=== PATIENT | male | born 2000 | race Caucasian/White ===

== ENCOUNTER 2020-09-09 21:17 | Emergency (ER) | payer MEDICAID ==
[~2020-09-09] VITALS: Ht 177.8 cm; Wt 55.9 kg
[2020-09-09 21:19] VITALS: BP 155/90
== END 2020-09-09 23:04 | disposition home or self-care (01) ==
LOC: ER 21:18
DX: R44.0 Auditory hallucinations (principal); R06.02 Shortness of breath; R07.89 Other chest pain
CPT/HCPCS: 99281; 99283

== ENCOUNTER 2021-04-19 12:13 | Emergency (ER) | payer MEDICAID ==
[~2021-04-19] VITALS: Ht 180.3 cm; Wt 56.0 kg
[2021-04-19 12:46] VITALS: BP 131/88
[2021-04-19] MEDS ORDERED: ESCI10TA PO (14:47)
== END 2021-04-19 15:02 | disposition home or self-care (01) ==
LOC: ER 12:13
DX: Z76.0 Encounter for issue of repeat prescription (principal); R51.9 Headache, unspecified
CPT/HCPCS: 99281; 99283